=== PATIENT | male | born 1950 | race Caucasian/White ===

== ENCOUNTER → 2020-06-09 | Outpatient (CLI) | payer MEDICARE, OTHER ==
[~2020-06-09] MED LIST: ALLERGY RELIEF10 MG PO; AMLODIPINE BESY10 MG PO; ASPIRIN 325MG325 MG PO; DAILY VITE1 EACH PO; HYDROCODON-ACE1 EAC6 PO; LEVOTHYROXINE125 MC1 PO; LIPITOR80 MG PO; LOW DOSE ASPIRI81 MG PO; METOPROLOL TART25 MG PO; OMEPRAZOLE20 MG PO; ZESTRIL20 MG PO
[2020-06-09 10:51] LABS: HEMOGLOBIN 15.7 gm/dl (14.0-17.5); RED BLOOD COUNT 4.79 M/UL (4.20-5.50)
[2020-06-09 11:15] LABS: BUN/CREATININE RATIO 12 (0-10)
== END ==
LOC: OPSV2 10:00 → EDSTATUS 10:00 → OPSV2 10:04
PROVIDERS: Orthopaedic Surgery
DX: Z01.818 Encounter for other preprocedural examination (principal); M17.11 Unilateral primary osteoarthritis, right knee; I10 Essential (primary) hypertension; I25.10 Atherosclerotic heart disease of native coronary artery without angina pectoris
CPT/HCPCS: 36415; 80048; 85025; 87081; 93005

== ENCOUNTER → 2020-06-20 | Outpatient (CLI) | payer MEDICARE, OTHER ==
[2020-06-20 12:49] LABS: BUN/CREATININE RATIO 12 (0-10)
== END ==
LOC: LAB 11:36
PROVIDERS: Orthopaedic Surgery
DX: M17.11 Unilateral primary osteoarthritis, right knee (principal); I10 Essential (primary) hypertension; I25.10 Atherosclerotic heart disease of native coronary artery without angina pectoris
CPT/HCPCS: 36415; 80048; 86850; 86900; 86901

== ENCOUNTER 2020-06-21 07:00 | Day surgery (SDC) | payer MEDICARE, OTHER ==
[~2020-06-21] VITALS: Ht 167.6 cm; Wt 91.6 kg
[2020-06-21] MEDS ORDERED: AMLODIPINE BESY10 MG PO (07:32)
[2020-06-21] MEDS ORDERED: LIPITOR80 MG PO (07:33)
[2020-06-21] MEDS ORDERED: ALLERGY RELIEF10 MG PO (07:34)
[2020-06-21] MEDS ORDERED: LEVOTHYROXINE125 MC1 PO (07:34)
[2020-06-21] MEDS ORDERED: METOPROLOL TART25 MG PO (07:36)
[2020-06-21] MEDS ORDERED: OMEPRAZOLE20 MG PO (07:38)
[2020-06-21] MEDS ORDERED: ZESTRIL20 MG PO (07:40)
[2020-06-21] MEDS ORDERED: LOW DOSE ASPIRI81 MG PO (07:41)
[2020-06-21] MEDS ORDERED: DAILY VITE1 EACH PO (07:42)
[2020-06-21 13:01] LABS: BUN/CREATININE RATIO 15 (0-10)
[2020-06-22 06:06] LABS: RED BLOOD COUNT 4.35 M/UL (4.20-5.50); WHITE BLOOD COUNT 15.8 K/UL (4.5-11.0)
[2020-06-22] MEDS ORDERED: HYDROCODON-ACE1 EAC6 PO (07:30)
[2020-06-22] MEDS ORDERED: ASPIRIN 325MG325 MG PO (09:31)
--- NOTE | 2020-06-22 10:30 | NUR ---
INSTRUCTED ON ASPIRIN CHANGE FROM 81MG TO 325 MG . PAIN MEDS E-SCRIPTED TO PHARMACY. TAKE DIRECTED KEEP FOLLOW UP APPOINTMENTS. VERBALIZED UNDERSTANDING. MARCO STERLING RN.
== END 2020-06-22 13:11 | disposition home or self-care (01) ==
LOC: OR 07:00 → M/S 13:12 → OR 06-22 13:11
PROVIDERS: Orthopaedic Surgery
DX: M17.11 Unilateral primary osteoarthritis, right knee (principal); I10 Essential (primary) hypertension; E78.5 Hyperlipidemia, unspecified; K21.9 Gastro-esophageal reflux disease without esophagitis; I25.10 Atherosclerotic heart disease of native coronary artery without angina pectoris; E03.9 Hypothyroidism, unspecified; R33.9 Retention of urine, unspecified; F17.210 Nicotine dependence, cigarettes, uncomplicated; I25.2 Old myocardial infarction; Z95.5 Presence of coronary angioplasty implant and graft; Z79.899 Other long term (current) drug therapy
CPT/HCPCS: 36415; 73560; 76000; 80048; 85027; 97110-GP-CQ; 97116-GP-CQ; 97161; 97166; 97535; C1776; J0171; J0690; J1100; J1170; J1885; J2001; J2405; J2704; J2795; J3010; J7120